=== PATIENT | female | born 1975 | race Caucasian/White ===

== ENCOUNTER 2016-08-13 09:01 | Emergency (ER) | payer MEDICAID ==
[~2016-08-13] VITALS: Ht 162.6 cm; Wt 79.0 kg
[2016-08-13 09:03] VITALS: BP 123/65
--- NOTE | 2016-08-13 09:45 | NUR ---
PT AMBULATED TO BED 3 AT THIS TIME.
--- NOTE | 2016-08-13 09:50 | NUR ---
40F BIB SELF C/O EPIGASTRIC PAIN, PRESSURE, RADIATES TO BL UPPER ABDOMINAL SIDES, 10/10 X 2 DAYS; PT STATES VOMITTED X 4 EPISODES TODAY, BUT DENIES DIARRHEA AT THIS TIME; ABDOMEN SOFT, NON-TENDER, ACTIVE BOWEL SOUNDS X 4 QUADRANTS; A&OX4, PERRL, BL LUNG SOUNDS CLEAR, RR EVEN/UNLABORED, SKIN IS WARM/DRY/INTACT AT THIS TIME; STEADY GAIT; PT RESTING IN BED W/ HOB ELEVATED AND IN LOWEST POSITION; POSITIONED FOR COMFORT; ER MD MADE AWARE OF STATUS. WILL CONTINUE TO MONITOR.
--- NOTE | 2016-08-13 09:55 | NUR ---
ER MD DR. CHOE EVALUATING PT AT BEDSIDE.
[2016-08-13] MEDS ORDERED: NACL 0.9% 500 ML IV ONE (09:56)
[2016-08-13] MEDS ORDERED: KETOROLAC 30 MG/ML VIAL IVP ONE (10:00)
[2016-08-13] MEDS ORDERED: ONDANSETRON 4 MG/2 ML VIAL IVP ONE (10:00)
--- NOTE | 2016-08-13 10:27 | NUR ---
US AT BEDSIDE AT THIS TIME.
[2016-08-13 10:28] LABS: BASOPHILS # (AUTO) 0.2 K/uL (0.00-0.22); EOSINOPHILS # (AUTO) 0.2 K/uL (0-0.4); MONOCYTES # (AUTO) 0.5 K/uL (0.8-1.0); NEUTROPHILS # (AUTO) 4.4 K/uL (1.8-7.7)
[2016-08-13 10:35] LABS: BASOPHILS % (AUTO) 3.4 % (0.0-2.0); EOSINOPHILS % (AUTO) 2.2 % (0.0-4.0); HEMATOCRIT 41.7 % (36-48); HEMOGLOBIN 13.9 g/dL (12.0-16.0); LYMPHOCYTES # (AUTO) 1.7 K/uL (2.5-16.5); LYMPHOCYTES % (AUTO) 24.6 % (20.5-51.1); MEAN CORPUSCULAR HEMOGLOBIN 30 pg (27-31); MEAN CORPUSCULAR HGB CONC 33 g/dL (33-37); MEAN CORPUSCULAR VOLUME 88 fL (80-94); MONOCYTES % (AUTO) 7.1 % (1.7-9.3); NEUTROPHILS % (AUTO) 62.7 % (42.2-75.2); PLATELET COUNT (AUTO) 183 K/uL (140-450); RED BLOOD CELL COUNT(AUTO) 4.71 MIL/uL (4.20-5.40); RED CELL DISTRIBUTION WIDTH 12.5 % (11.6-13.7)
[2016-08-13 10:37] LABS: ANION GAP 11.4 (8-16); CALCIUM 8.4 mg/dL (8.5-10.1); CARBON DIOXIDE 27.5 mmol/L (21-32); CREATININE 0.7 mg/dL (0.6-1.3); POTASSIUM 3.9 mmol/L (3.5-5.1)
[2016-08-13 10:42] LABS: ALBUMIN 3.9 g/dL (3.4-5.0); TOTAL BILIRUBIN 0.2 mg/dL (0.0-1.0); TOTAL PROTEIN, SERUM 7.7 g/dL (6.4-8.2)
--- NOTE | 2016-08-13 12:04 | NUR ---
Patient appears to be resting comfortably in bed. Vital Signs within normal limits. Respirations even and unlabored. WILL CONTINUE TO MONITOR.
--- NOTE | 2016-08-13 12:19 | NUR ---
IV removed, catheter intact and site benign. Applied folded 4x4 gauze and tape to stop bleeding. PT TOLERATED PROCEDURE WELL.
[2016-08-13 12:21] VITALS: BP 112/75
--- NOTE | 2016-08-13 12:21 | NUR ---
Patient discharged with v/s stable. Written and verbal after care instructions given and explained. Patient alert, oriented and verbalized understanding of instructions. Ambulatory with steady gait. All questions addressed prior to discharge. ID band removed. Patient advised to follow up with PMD. Rx of MOTRIN 800MG, TYLENOL W/ CODEINE NO. 3 & ZOFRAN ODT 4MG given. Patient educated on indication of medication including possible reaction and side effects. Opportunity to ask questions provided and answered.
[2016-08-14] MEDS ORDERED: ONDA4TAB PO (21:14)
[2016-08-14] MEDS ORDERED: IBUP-2213 PO (21:14)
== END 2016-08-13 12:21 | disposition home or self-care (01) ==
LOC: MED 09:01
PROC: BF42ZZZ Ultrasonography of Gallbladder (ICD-10-PCS; principal; 2016-08-13)
PROC: 3E033GC Introduction of Other Therapeutic Substance into Peripheral Vein, Percutaneous Approach (ICD-10-PCS; 2016-08-13)
DX: K80.20 Calculus of gallbladder without cholecystitis without obstruction (principal); R03.0 Elevated blood-pressure reading, without diagnosis of hypertension
CPT/HCPCS: 36415; 76705; 80053; 81025; 82150; 83690; 85025; 96361; 96374; 96375; 99285; J1885; J2405; J7030; Q0092

== ENCOUNTER 2016-08-14 15:20 | Inpatient (IN) | payer MEDICAID ==
[~2016-08-14] VITALS: Ht 162.6 cm; Wt 78.9 kg
[2016-08-14 16:24] VITALS: BP 123/88
--- NOTE | 2016-08-14 19:57 | NUR ---
Patient ambulated to bed 04.
--- NOTE | 2016-08-14 19:58 | NUR ---
PATIENT PRESENTS TO ED WITH C/O EPIGASTRIC PAIN NON RADIATING WITH N/V X 3 DAYS. PT WAS SEEN IN ER LAST NIGHT WITH RX OF NORCO, TAKEN WITH NO RELIEF OF PAIN . PT STATES NO MEDICAL HISTORY. DENIES DIARRHEA; SKIN IS PINK/WARM/DRY; AAOX4 WITH EVEN AND STEADY GAIT; LUNGS CLEAR BL; HR EVEN AND REGULAR; PT DENIES ANY FEVER, CP, SOB, OR COUGH AT THIS TIME; PATIENT STATES PAIN OF 10/10 AT THIS TIME; VSS; PATIENT POSITIONED FOR COMFORT; HOB ELEVATED; BEDRAILS UP X2; BED DOWN. ER MD MADE AWARE OF PT STATUS.
[2016-08-14] MEDS ORDERED: ONDANSETRON 4 MG/2 ML VIAL IVP ONE (20:45)
[2016-08-14] MEDS ORDERED: MORPHINE SULFATE 4 MG/ML SYR IVP ONE (20:45)
[2016-08-14] MEDS ORDERED: NACL 0.9% 1,000 ML IV ONE (20:45)
--- NOTE | 2016-08-14 20:46 | NUR ---
Dr. Garcia evaluating patient at bedside.
--- NOTE | 2016-08-14 21:08 | NUR ---
Patient will be admitted to care of MD XAVIER GONZALEZ. Admited to MED-SURG. Will go to room 112B. Belongings list completed.
[2016-08-14] MEDS ORDERED: ZOFRAN4 M1 PO (21:14)
[2016-08-14] MEDS ORDERED: MOTRIN600 MG PO (21:14)
[2016-08-14] MEDS ORDERED: ONDANSETRON 4 MG/2 ML VIAL IVP PRN (21:20)
--- NOTE | 2016-08-14 21:25 | NUR ---
REPORT CALLED TO KWESI VAUGHAN.
[2016-08-14 21:35] VITALS: BP 115/73
--- NOTE | 2016-08-14 21:35 | NUR ---
ADMITTED A PT FROM ER, TRANSPORTED VIA WHEELCHAIR. PT IS AAOX4, HAS NO COMPLAIN OF PAIN. LIBERIAN SPEAKER. ON ROOM AIR, NO S/S OF RESPIRATORY DISTRESS/DISCOMFORT NOTED. MRSA SWABBING DONE. ID BAND UPDATED. ORIENTATION TO ROOM DONE. V/S CHECKED. PLAN OF CARE DISCUSSED, VERBALIZED UNDERSTANDING. SAFETY MEASURES INITIATED. WILL CONTINUE TO MONITOR.
--- NOTE | 2016-08-14 21:37 | NUR ---
Pt transferred to Med/Surg ROOM 112B via WHEELCHAIR BY EMT IN STABLE CONDITION. TRANSFER OF CARE AT THIS TIME TO CLEMENT Thompson RN.
[2016-08-14] MEDS: NACL 0.9% 1,000 ML IV SCH (23:04)
[2016-08-15] VITALS: BP 109/73
--- NOTE | 2016-08-15 00:35 | NUR ---
V/S CHECKED AND STABLE. HAS NO COMPLAIN OF PAIN. NO S/S OF RESPIRATORY DISTRESS/ DISCOMFORT NOTED.
--- NOTE | 2016-08-15 02:00 | NUR ---
PT SLEEPING. NO S/S OF RESPIRATORY DISTRESS/DISCOMFORT NOTED. SAFETY MEASURES CHECKED, CALL LIGHT WITHIN REACH.
[2016-08-15] MEDS: HYDROcodone/APAP 5/325 MG 1 TAB TAB PO PRN (03:52)
--- NOTE | 2016-08-15 04:00 | NUR ---
PT COMPLAINED OF PAIN 10/10 TO HER ABDOMINAL AREA, ADMINISTERED PAIN MED PER MD ORDERED.
[2016-08-15] MEDS: NACL 0.9% 1,000 ML IV SCH ×3 (06:42→22:19)
--- NOTE | 2016-08-15 06:44 | NUR ---
PT AMBULATED TO RESTROOM WITH STEADY GAIT, NO DISTRESS NOTED.
--- NOTE | 2016-08-15 07:21 | NUR ---
ENDORSED REPORT TO DAY SHIFT NURSE FOR CONTINUITY OF CARE. PT REMAIN IN STABLE CONDITION.
--- NOTE | 2016-08-15 07:22 | NUR ---
RECEIVED PT AWAKE AND LYING ON BED, AOX4 NO S/S OF RESPIRATORY DISTRESS OR DISCOMFORT. WITH IV ACCESS AT LEFT AC 20G INFUSING FLUIDS WELL. SKIN IS INTACT. DISCUSSED PLAN OF CARE, PT VERBALIZED UNDERSTANDING. NO COMPLAINTS OF PAIN OR NAUSEA AT THIS TIME. CALL LIGHT WITHIN REACH, WILL CONTINUE TO MONITOR.
[2016-08-15 08:00] VITALS: BP 114/72
--- NOTE | 2016-08-15 08:22 | NUR ---
PATIENT HAS BEEN SCREENED AND CATEGORIZED MODERATE NUTRITION RISK. PATIENT WILL BE SEEN WITHIN 3-5 DAYS OF ADMISSION. 08/17/16-08/19/[address]
--- NOTE | 2016-08-15 09:32 | NUR ---
PT AWAKE LYING ON BED WITH RELATIVE AT BEDSIDE. COMPLAINED OF ABDOMINAL PAIN, WILL ADMINISTER MORPHINE.
[2016-08-15] MEDS: MORPHINE SULFATE 2 MG/ML SYR IVP PRN (09:43)
--- NOTE | 2016-08-15 09:59 | NUR ---
SPOKE TO DR. SIM ON THE PHONE, WILL CARRY OUT NEW ORDERS
--- NOTE | 2016-08-15 11:30 | NUR ---
PT ASLEEP AT THIS TIME, INFORMED ABOUT HIDA SCAN.
--- NOTE | 2016-08-15 13:48 | NUR ---
PT LEFT UNIT FOR HIDA SCAN ACCOMPANIED BY ARMAND MENDOZA NUCLEAR MED ON A WHEELCHAIR
--- NOTE | 2016-08-15 15:10 | NUR ---
PT BACK TO UNIT FROM HIDA SCAN
[2016-08-15 16:00] VITALS: BP 118/77
--- NOTE | 2016-08-15 17:36 | NUR ---
PT SITTING ON BED WITH RELATIVES AT BEDSIDE. ALL NEEDS MET AT THIS TIME. WILL CONTINUE TO MONITOR.
--- NOTE | 2016-08-15 19:31 | NUR ---
ENDORSED PT TO ADINARN IN STABLE CONDITION FOR CONTINUITY OF CARE
--- NOTE | 2016-08-15 19:35 | NUR ---
RECEIVED PT IN STABLE CONDITION FROM MN NURSE. AWAKE,ALERT AND ORIENTED X4. MAORI SPEAKING. MED SURG PT. WITH NO C/O ANY PAIN AT THIS TIME. FAMILY AT BEDSIDE. HAS IVF INFUSING WELL ON THE LT AC#20. CLEAR AND PATENT. AMBULATORY. AWAITING HFOR HIDA SCAN RESULT. WILL CALL DR. SIM FOR RESULT. PLAN OFC ARE DISCUSSED AND VERBALIZED UNDERSTANDING. CALL LIGHT PLACED WITHIN EASY REACH. WILL CONTINUE TO MONITOR.
--- NOTE | 2016-08-15 19:53 | NUR ---
PAGED DR. SIM FOR RESULT OF HIDA SCAN. CALLED BACK .MADE AWARE OF THE RESULT. WITH ORDER TO START REGULAR DIET AND CAN BE DISCHARGE ANYTIME AND FOLLOW UP IN ONE WEEK . TO HAVE MD AWARE.
--- NOTE | 2016-08-15 20:09 | NUR ---
PAGED DR. GONZALEZ. DR. OVIEDO MEDICARE COORDINATOR. CALLED BACK. MADE AWARE OF [facility] ORDER . SHE SAID PT CAN STILL STAY FOR TONIGHT.
--- NOTE | 2016-08-15 21:00 | NUR ---
PT TOLERATED SOLID FOOD. NO N/V NOTED. WILL CONTINUE TO MONITOR.
--- NOTE | 2016-08-15 22:30 | NUR ---
SLEEPING AT THIS TIME. NO S/S OF ANY DISCOMFORT NOR PAIN NOTED.
[2016-08-15 23:50] VITALS: BP 100/63
[2016-08-16] MEDS: HYDROcodone/APAP 5/325 MG 1 TAB TAB PO PRN (00:03)
[2016-08-16] MEDS: NACL 0.9% 1,000 ML IV SCH ×4 (00:39→23:19)
--- NOTE | 2016-08-16 01:30 | NUR ---
MADE ROUNDS. SLEEPING WELL. NO C/O PAIN NOR DISCOMFORT NOTED.
--- NOTE | 2016-08-16 03:45 | NUR ---
MADE ROUNDS. SLEEPING WELL. NO S/S OF ANY PAIN NOTED.
--- NOTE | 2016-08-16 06:20 | NUR ---
SLEPT WELL DURING THE NIGHT. NO C/O ANY PAIN AT THIS TIME.
--- NOTE | 2016-08-16 07:20 | NUR ---
RECEIVED REPORT FROM NIGHT NURSE. PT IS RESTING IN BED. PT IS A/O X 2. PT IS ON ROOM AIR. PT HAS A 20G IV ON THE RIGHT AC THAT IS PATENT AND INTACT. PATIENT DENIES PAIN. NOTED ABSCESS IN THE LEFT UPPER INNER THIGH. PT'S BED IS LOWERED WITH CALL LIGHT WITHIN REACH. WILL CONTINUE TO MONITOR. Addendum: 08/16/16 at 0738 by Alondra Adler RN WRONG PATIENT. RECEIVED REPORT FROM NIGHT NURSE. PT IS RESTING IN BED. PT IS A/OX4. PT IS ON ROOM AIR. PT HAS LEFT AC 20G THAT IS PATENT AND INTACT. PATIENT HAS NO COMPLAINT OF PAIN. PT SKIN IS INTACT. PT'S BED IS LOWERED WITH CALL LIGHT WITHIN REACH. WILL CONTINUE TO MONITOR.
--- NOTE | 2016-08-16 07:21 | NUR ---
ENDORSED PT IN STABLE CONDITION TO AM NURSE.
[2016-08-16 08:00] VITALS: BP 119/72
--- NOTE | 2016-08-16 09:00 | NUR ---
PT EATING BREAKFAST. PT TOLERATING WELL. NO COMPLAINTS OF PAIN. WILL CONTINUE TO MONITOR.
--- NOTE | 2016-08-16 11:00 | NUR ---
PT VISITED. PT IN BED AND SHOWS NO S/S OF DISTRESS.
--- NOTE | 2016-08-16 15:00 | NUR ---
PT SPOKE WITH DR GREEN. PT STATED SHE FELT NAUSEATED AFTER EATING A REGULAR DIET. NURSE WAS NOTIFIED AND WILL MEDICATE. PT STATES SHE FEELS SWEATY AND HAS PAIN RADIATING FROM THE UPPER RIGHT QUADRANT TO MIDEPIGASTRIC. DR TERRAZAS LET PT KNOW SHE WILL BE STAYING ANOTHER NIGHT
--- NOTE | 2016-08-16 15:05 | NUR ---
PT MEDICATED FOR NAUSEA AND VOMITING. WILL CONTINUE TO MONITOR.
[2016-08-16 16:00] VITALS: BP 122/85
[2016-08-16] MEDS ORDERED: ALUMINUM HYD/MAG/SIMETHICONE 30 ML UDC PO PRN (16:45)
[2016-08-16] MEDS ORDERED: ALUMINUM HYD/MAG/SIMETHICONE 30 ML UDC PO SCH (16:47)
[2016-08-16] MEDS: MORPHINE SULFATE 2 MG/ML SYR IVP PRN (17:45)
--- NOTE | 2016-08-16 19:10 | NUR ---
PT REPORT GIVEN AT BEDSIDE TO NIGHT NURSE. PT ENDORSED IN STABLE CONDITION.
--- NOTE | 2016-08-16 19:30 | NUR ---
RECEIVED PT IN STABLE CONDITION FROM AM NURSE. AWAKE,ALERT AND ORIENTED X4. GEORGIAN SPEAKING. MED SURG PT. WITH NO DISTRESS NOTED. PT SAID STILL WITH SOME ABDOMINAL DISCOMFORT BUT DON'T NEED ANY PAIN MED AT THIS TIME. HAS IVF INFUSING ON THE LT AC #20. AMBULATORY. PLAN OF CARE DISCUSSED AND VERBALIZED UNDERSTANDING. CALL LIGHT PLACED WITHIN EASY REACH. WILL CONTINUE TO MONITOR.
--- NOTE | 2016-08-16 20:15 | NUR ---
PT C/O PAIN ON IV SITE LT AC. DISCONTINUED. STARTED A NEW IV ACCESS ON THE LT HAND #20. WITH GOOD BLOOD RETURN. IVF INFUSING WELL.
--- NOTE | 2016-08-16 22:00 | NUR ---
SLEEPING WELL AT THIS TIME.O S/S OF ANY DISCOMFORT NOR PAIN NOTED.
[2016-08-16 23:58] VITALS: BP 108/65
--- NOTE | 2016-08-17 00:02 | NUR ---
VITAL SIGNS STABLE. NO C/O ANY PAIN AT THIS TIME. NO N/V NOTED.
--- NOTE | 2016-08-17 02:45 | NUR ---
SLEEPING WELL AT THIS TIME. NO S/S OF ANY DISCOMFORT NOTED.
--- NOTE | 2016-08-17 05:00 | NUR ---
SLEPT WELL. NO NAUSEA AND VOMITING NOTED.
[2016-08-17] MEDS: NACL 0.9% 1,000 ML IV SCH ×3 (05:01→15:59)
--- NOTE | 2016-08-17 07:10 | NUR ---
RECEIVED REPORT FROM NIGHT NURSE. PT IS RESTING IN BED AND SHOWS NO S/S OF DISTRESS. PT DENIES PAIN AND NO NAUSEA. PT IS A/OX4. PT IS ON ROOM AIR. PT HAS IV ON THE LEFT HAND 20G THAT IS PATENT AND INTACT. PT SKIN IS INTACT. PT'S BED IS LOWERED WITH CALL LIGHT WITHIN REACH. WILL CONTINUE TO MONITOR.
--- NOTE | 2016-08-17 07:25 | NUR ---
ENDORSED PT IN STABLE CONDITION TO AM NURSE FOR CONTINUITY OF CARE.
[2016-08-17 08:00] VITALS: BP 111/74
[2016-08-17] MEDS ORDERED: COLACE100 MG PO (11:05)
[2016-08-17] MEDS ORDERED: NORCO 10-325 T1 EACH PO (11:05)
[2016-08-17] MEDS ORDERED: ZOFRAN ODT4 MG SL (11:05)
--- NOTE | 2016-08-17 12:55 | NUR ---
PT SEEN BY DR. GREEN. DR ORDERED PT FOR DISCHARGE LATER TODAY.
--- NOTE | 2016-08-17 14:00 | NUR ---
PT RESTING IN BED. PT SHOWS NO S/S OF DISTRESS. WILL CONTINUE TO MONITOR.
[2016-08-17 16:00] VITALS: BP 118/78
--- NOTE | 2016-08-17 16:40 | NUR ---
PT HAS BEEN DISCHARGED. ALL PAPERWORK SIGNED. ALL QUESTIONS ANSWERED. ALL BELONGINGS, DISCHARGE INSTRUCTIONS, AND PRESCRIPTIONS GIVEN AND IN PT'S POSSESSION. IV DISCONTINUED WITH CANNULA INTACT. WRISTBANDS REMOVED. OFFERED PATIENT WHEELCHAIR, PATIENT REFUSED. PATIENT AMBULATED OUT OF UNIT WITH STEADY GAIT WITH FAMILY PRESENT AT SIDE. PATIENT IN STABLE CONDITION.
[2016-11-11] MEDS ORDERED: NORCO 5/325 MG1 TAB PO (12:08)
== END 2016-08-17 16:50 | disposition home or self-care (01) ==
LOC: MED 15:20 → MMU 21:08 → MTU 21:34
PROVIDERS: ADMIT Family Medicine; ATTEND Family Medicine
DX: K80.70 Calculus of gallbladder and bile duct without cholecystitis without obstruction (principal); E44.1 Mild protein-calorie malnutrition; Z53.29 Procedure and treatment not carried out because of patient's decision for other reasons; E83.51 Hypocalcemia; Z68.29 Body mass index [BMI] 29.0-29.9, adult; Z79.899 Other long term (current) drug therapy; Z83.3 Family history of diabetes mellitus; Z56.0 Unemployment, unspecified; Z71.3 Dietary counseling and surveillance

== ENCOUNTER 2017-08-11 16:55 | Emergency (ER) | payer MEDICAID ==
[~2017-08-11] VITALS: Ht 165.1 cm; Wt 75.1 kg
[~2017-08-11 16:55] MED LIST: ACET-8386 PO
[2017-08-11 17:07] VITALS: BP 125/84
--- NOTE | 2017-08-11 17:14 | NUR ---
PT AMBULATED TO BED 1
--- NOTE | 2017-08-11 17:18 | NUR ---
PATIENT PRESENTS TO ED WITH C/O NVD, COUGH, FEVER, GEN BODY ACHE, SOB X 2 DAYS; TOOK MOTRIN AROUND 1500 . AAOX4 WITH EVEN AND STEADY GAIT; LUNGS CLEAR BL; HR EVEN AND REGULAR; SKIN IS PINK/WARM/DRY; PATIENT STATES GENERALIZED PAIN OF 10/10 AT THIS TIME; VSS; PATIENT POSITIONED FOR COMFORT; HOB ELEVATED; BEDRAILS UP X2; BED DOWN. ER MD MADE AWARE OF PT STATUS.
[2017-08-11] MEDS ORDERED: ACETAMIN/CODEINE 120/12MG-5ML 5 ML UDC PO ONE (18:15)
[2017-08-11 18:53] VITALS: BP 110/78
--- NOTE | 2017-08-11 18:53 | NUR ---
Patient discharged with v/s stable. Written and verbal after care instructions given and explained. Patient alert, oriented and verbalized understanding of instructions. Ambulatory with to car. All questions addressed prior to discharge. ID band removed. Patient advised to follow up with PMD. Rx of AZITHROMYCIN AND GUAIATUSSIN given. Patient educated on indication of medication including possible reaction and side effects. Opportunity to ask questions provided and answered.
== END 2017-08-11 18:53 | disposition home or self-care (01) ==
LOC: MED 16:55
DX: J20.9 Acute bronchitis, unspecified (principal); Z90.49 Acquired absence of other specified parts of digestive tract; Z79.899 Other long term (current) drug therapy
CPT/HCPCS: 71045; 81025; 99283; Q0092

== ENCOUNTER 2018-06-14 12:03 | Inpatient (IN) | payer MEDICAID ==
[~2018-06-14] VITALS: Ht 162.6 cm; Wt 75.7 kg
--- NOTE | 2018-06-14 12:08 | NUR ---
PT AMBULATES TO BED 3
[2018-06-14 12:13] VITALS: BP 130/84
--- NOTE | 2018-06-14 12:16 | NUR ---
urine cup handed to pt
[2018-06-14] MEDS ORDERED: NACL 0.9% 2,000 ML IV SCH (12:19)
[2018-06-14] MEDS ORDERED: NACL 0.9% 1,000 ML IV ONE (12:19)
[2018-06-14] MEDS ORDERED: DICYCLOMINE HCL LIQUID 10 MG/5 ML UDC PO ONE (12:20)
[2018-06-14] MEDS ORDERED: MORPHINE SULFATE 2 MG/ML SYR IVP ONE (12:20)
[2018-06-14] MEDS ORDERED: KETOROLAC 30 MG/ML VIAL IVP ONE (12:20)
[2018-06-14] MEDS ORDERED: PIPERACILLIN/TAZOBACTAM 3.375 GM in DEXT 5% MINI-BAG PLUS 50 ML IV ONE (12:20)
--- NOTE | 2018-06-14 12:20 | NUR ---
42 Y/O F W/C/O INTERMITTENT GENERALIZED ABD PAIN/ ASCITIES X 1 WEEK. PT STATES SHE HAS A "BLOATED, FULL SENSATION IN ABD." PT DENIES N/V/D; SKIN IS PINK/WARM/DRY; AAOX4, PERRL, WITH EVEN AND STEADY GAIT; LUNGS CLEAR BL, BREATHING UNLABORED; HR EVEN AND REGULAR, BL PERIPHERAL PULSES PRESENT; PT DENIES ANY FEVER, CP, SOB, OR COUGH AT THIS TIME; PT STATES 9/10 PAIN AT THIS TIME; VSS; PATIENT POSITIONED FOR COMFORT; HOB ELEVATED; BEDRAILS UP X2; BED DOWN. --seen in our ER May 10, 2018 dx Diverticulitis Hx-Diverticulitis rx--Zantac/ Omeprazol
[2018-06-14 12:44] LABS: BASOPHILS % (AUTO) 0.5 % (0.0-2.0); EOSINOPHILS # (AUTO) 0.1 K/uL (0-0.4); EOSINOPHILS % (AUTO) 1.3 % (0.0-4.0); HEMATOCRIT 43.7 % (36-48); HEMOGLOBIN 14.1 g/dL (12.0-16.0); LYMPHOCYTES # (AUTO) 1.5 K/uL (2.5-16.5); LYMPHOCYTES % (AUTO) 21.4 % (20.5-51.1); MEAN CORPUSCULAR HEMOGLOBIN 29 pg (27-31); MEAN CORPUSCULAR HGB CONC 32 g/dL (33-37); MEAN CORPUSCULAR VOLUME 89.2 fL (80-94); MONOCYTES # (AUTO) 0.5 K/uL (0.8-1.0); MONOCYTES % (AUTO) 6.8 % (1.7-9.3); NEUTROPHILS # (AUTO) 4.9 K/uL (1.8-7.7); PLATELET COUNT (AUTO) 188 K/uL (140-450); RED CELL DISTRIBUTION WIDTH 14.1 % (11.6-13.7)
[2018-06-14] MEDS ORDERED: PIPERACILLIN/TAZOBACTAM 3.375 GM VIAL IV ONE (12:44)
--- NOTE | 2018-06-14 12:44 | NUR ---
PT TAKEN TO X-RAY AT THIS TIME.
[2018-06-14 12:52] LABS: ANION GAP 12.8 (8-16); CARBON DIOXIDE 24.6 mmol/L (21-32); CREATININE 0.8 mg/dL (0.6-1.3); POTASSIUM 3.4 mmol/L (3.5-5.1)
[2018-06-14 12:58] LABS: ALBUMIN 3.6 g/dL (3.4-5.0); TOTAL BILIRUBIN 0.4 mg/dL (0.0-1.0)
[2018-06-14 13:03] LABS: PROTHROMBIN TIME 9.3 secs (10.8-13.4)
--- NOTE | 2018-06-14 13:14 | NUR ---
PT STILL NOT BACK AT THIS TIME.
--- NOTE | 2018-06-14 13:15 | NUR ---
PT STAYING FOR CT PER TECH.
--- NOTE | 2018-06-14 13:33 | NUR ---
PT BACK FROM CT AT THIS TIME.
[2018-06-14] MEDS ORDERED: NACL 0.9% 1,000 ML IV SCH (13:49)
[2018-06-14] MEDS ORDERED: ACETAMINOPHEN 325 MG TAB PO PRN (13:50)
[2018-06-14] MEDS ORDERED: ZOLPIDEM 5 MG TAB PO PRN (13:50)
[2018-06-14] MEDS ORDERED: ONDANSETRON 4 MG/2 ML VIAL IM/IVP PRN (13:50)
[2018-06-14] MEDS ORDERED: DOCUSATE SODIUM 100 MG GELCAP PO PRN (13:50)
[2018-06-14] MEDS ORDERED: HYDROcodone/APAP 5/325 MG 1 TAB TAB PO PRN (13:50)
[2018-06-14 14:02] LABS: APPEARANCE,URINE CLEAR (CLEAR); BILIRUBIN,URINE 1+ (NEGATIVE); BLOOD, URINE NEGATIVE (NEGATIVE); COLOR,URINE YELLOW (YELLOW); LEUKOCYTE ESTERASE ,URINE NEGATIVE (NEGATIVE); NITRITE, URINE NEGATIVE (NEGATIVE); UGLUCOSE NEGATIVE (NEGATIVE)
[2018-06-14 14:05] VITALS: BP 114/78
[2018-06-14 14:05] LABS: CALCIUM OXALATE CRYSTALS,UR 0-10 /HPF (None Seen); RBC,URINE 0-5 (RARE) /HPF (0-5); WBC,URINE 0-5 (RARE) /HPF (0-5)
--- NOTE | 2018-06-14 14:05 | NUR ---
RECEIVED BEDSIDE REPORT FROM ER TRANSFER RN. PATIENT IS AOX4. C/O ABDOMINAL PAIN 12/20. MEDICATED WITH MORPHINE. VITAL SIGNS ARE STABLE. IV ON L AC 20G, PATENT AND INTACT, INFUSING PER MD ORDER. IV SITE CLEAN AND DRY. SKIN CLEAN, DRY AND WARM. RESPIRATION IS EVEN, UNLABORED IN RA. ABLE TO AMBULATE WITH STEADY GAIT. TELE MONITOR ATTACHED. PATIENT IS NPO PER MD ORDER. ORIENTED PATIENT TO THE ROOM, USING CALL LIGHT, TV, BED, AND BATHROOM. FAMILY ARE AT BEDSIDE AT THIS TIME. REVIEWED PLAN OF CARE WITH PATIENT, PATIENT VERBALIZED UNDERSTANDING. NPO SIGN POSTED ON DOOR. BED IN LOW POSITION, CALL LIGHT WITHIN REACH. WILL CONTINUE TO MONITOR.
--- NOTE | 2018-06-14 14:05 | NUR ---
PT TAKEN TO TELE FLOOR BY RN IVANNA AND EMT SARAH
[2018-06-14 14:09] LABS: BARBITURATE, URINE NEG. ng/ml (NEG <=200); BENZODIAZEPINE, URINE NEG. ng/mL (NEG <=200); CANNABINOID, URINE NEG. ng/mL (NEG <=50); COCAINE, URINE NEG. ng/mL (NEG <=300); OPIATE, URINE NEG. ng/mL (NEG <=2000); PHENCYCLIDINE SCREEN,URINE NEG. ng/mL (NEG <=25)
--- NOTE | 2018-06-14 14:10 | NUR ---
Patient will be admitted to care of DR. VILLAFANA. Admited to TELE. Will go to room 106B. Belongings list completed. Report to CORWIN OROSCO.
--- NOTE | 2018-06-14 14:21 | NUR ---
Patient will be admitted to care of DR. VILLAFANA. Admited to TELE. Will go to room 106B. Belongings list completed. Report to CORWIN OROSCO.
--- NOTE | 2018-06-14 14:21 | NUR ---
Note mansoor in ED - 06/14/18 at 1422 by COTY Patient will be admitted to care of DR. VILLAFANA. Admited to TELE. Will go to room 106B. Belongings list completed. Report to CORWIN OROSCO.
[2018-06-14 14:27] LABS: CHOL/HDL RATIO 4.5 (1-4.5); MAGNESIUM 2.5 mg/dL (1.8-2.4); PHOSPHORUS 3.6 mg/dL (2.5-4.9); THYROID STIMULATING HORMONE 1.5 uIU/mL (0.34-3.74)
[2018-06-14] MEDS ORDERED: MORPHINE SULFATE 2 MG/ML SYR IVP SCH (14:30)
[2018-06-14 16:00] VITALS: BP 138/88
--- NOTE | 2018-06-14 17:15 | NUR ---
DR MADISON Lowe IS AT BEDSIDE TALKING TO PATIENT AND PATIENT'S FAMILY.
--- NOTE | 2018-06-14 17:38 | NUR ---
[facility] MEDICAL TECHNOLOGIST BLOOD BANK NOTIFIED OF TRANSFER OF THIS PATIENT, ACCEPTING DR Mynor ROBERTS, FACE SHEET AND H&P, AND DR Mynor ROBERTS'S NOTES FAXED TO [phone]
[2018-06-14] MEDS ORDERED: PIPER/TAZO 3.375GM/D5W PREMIX 50 ML IV SCH (18:00)
[2018-06-14] MEDS ORDERED: MORP2SOL18 IVP (18:09)
[2018-06-14] MEDS ORDERED: ONDA2SOL45 IM/IVP (18:09)
[2018-06-14] MEDS ORDERED: ACET-1182 PO (18:09)
[2018-06-14] MEDS ORDERED: PIPE1PDS20 IV (18:09)
--- NOTE | 2018-06-14 18:22 | NUR ---
ADMINISTERED MED PER MD ORDER. PATIENT TOLERATED WELL. DENIES OF PAIN. FAMILY AND VISITORS ARE AT BEDSIDE. WILL CONTINUE TO MONITOR.
--- NOTE | 2018-06-14 19:07 | NUR ---
I GOT A CALL FROM [facility] SPOKE WITH ZELALEM PATIENT CAN GO TO ROOM 345B ACCEPTING DR WILL BE DR ARMANDO MICHAEL WILL ARRANGE TRANSPORT WITH [facility].
--- NOTE | 2018-06-14 19:20 | NUR ---
ENDORSED PATIENT TO MEDIA STRATEGIST NURSE FOR CONTINUITY OF CARE. PATIENT IS IN STABLE CONDITION. INFORMED PATIENT AND FAMILY ON REGARDS OF TRANSFER TO [facility]. PATIENT AND FAMILY VERBALIZED UNDERSTANDING.
--- NOTE | 2018-06-14 19:22 | NUR ---
REPORT RECEIVED FROM AM NURSE AT BEDSIDE. PT IN STABLE CONDITION. AAOX4. INTRODUCED SELF TO PT. BOARD UPDATED. NO COMPLAINTS OF PAIN. NO SOB. AFEBRILE. IV SITE L AC 20G RUNNING NS@60ML/HR PATENT AND INTACT. SKIN WARM, DRY, AND INTACT WITH NO OPEN WOUNDS. BED LOCKED IN LOW POSITION. CALL JIMÉNEZ WITHIN REACH. SAFETY PRECAUTIONS IN PLACE. ALL NEEDS MET AT THIS TIME.
[2018-06-14 20:00] VITALS: BP 117/79
[2018-06-14] MEDS ORDERED: MORPHINE SULFATE 2 MG/ML SYR IVP PRN (20:30)
[2018-06-14 20:55] VITALS: BP 117/79
--- NOTE | 2018-06-14 21:00 | NUR ---
DISCHARGE PAPERWORK COMPLETE. PT SIGNED ALL PAPERWORK.
--- NOTE | 2018-06-14 21:15 | NUR ---
[facility] CALLED. 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
--- NOTE | 2018-06-14 21:45 | NUR ---
REPORT GIVEN TO LION [phone]. PT TO BE ACCEPTED BY DR. Willie ROBERTS. SURGICAL CONSULT WITH DR. ARAYA. ACCEPTING WILL BE [place] OROSCO. PT NEEDS TO GO TO ER TO [facility] GUIDE DELORIS TELLO.
[2018-06-15] MEDS ORDERED: POTASSIUM CHLORIDE 10 MEQ TABER PO SCH (09:00)
== END 2018-06-14 22:50 | disposition short-term general hospital (02) | DRG 244 ==
LOC: MED 12:03 → MTU 13:57
PROVIDERS: ADMIT General Practice; ATTEND General Practice
DX: K57.92 Diverticulitis of intestine, part unspecified, without perforation or abscess without bleeding (principal); R18.8 Other ascites; N73.5 Female pelvic peritonitis, unspecified; D27.0 Benign neoplasm of right ovary; E66.9 Obesity, unspecified; E78.5 Hyperlipidemia, unspecified; E87.6 Hypokalemia; Z79.899 Other long term (current) drug therapy; Z90.49 Acquired absence of other specified parts of digestive tract; Z98.891 History of uterine scar from previous surgery; Z83.3 Family history of diabetes mellitus; Z68.28 Body mass index [BMI] 28.0-28.9, adult
CPT/HCPCS: 36415; 71045; 76856; 80053; 80305; 81001; 82150; 83036; 83605; 83690; 83735; 84100; 84134; 84443; 84703; 85025; 85610; 85730; 87040; 87081; 87086; 93005; 96365; 96375; 99285; J1885; J2270; J2543; Q0092

== ENCOUNTER 2019-03-22 09:10 | Emergency (ER) | payer MEDICAID, OTHER ==
[~2019-03-22] VITALS: Ht 162.6 cm; Wt 59.0 kg
[~2019-03-22 09:10] MED LIST changes: +ACET-1182 PO; +MORP2SOL18 IVP; +ONDA2SOL45 IM/IVP; +PIPE1PDS20 IV
[2019-03-22 09:21] VITALS: BP 124/82
--- NOTE | 2019-03-22 09:30 | NUR ---
PT AMBULATED TO BED 04.
--- NOTE | 2019-03-22 09:35 | NUR ---
PT ARRVIED TO ED C/O EPIGASTRIC PAIN, N,V,D X 3 DAYS S/P CHEMOTHERAPY. RATES PAIN 10/10. ACTIVE BS IN ALL QUADS, FLAT AND SOFT ABD, AND TNDERNESS ON EPIGASTRIC REGION. PT SATTES SHES BEEN HAVING N,V,D FOR 3 DAYS AND SAYS THE MEDICATION PRESCRIBED HASNT BEEN WORKING. VSS. NO DISTRESS NOTED. NKA. PMH: LEFT OVARY MALIGNANT NEOPLASM.
[2019-03-22] MEDS ORDERED: NACL 0.9% 500 ML IV ONE (09:41)
[2019-03-22] MEDS ORDERED: ONDANSETRON 4 MG/2 ML VIAL IVP ONE (09:45)
[2019-03-22] MEDS ORDERED: MORPHINE SULFATE 2 MG/ML SYR IVP ONE ×2 (09:45→12:15)
--- NOTE | 2019-03-22 10:12 | NUR ---
US AT BEDSIDE.
[2019-03-22 10:14] LABS: BASOPHILS % (AUTO) 0.3 % (0.0-2.0); EOSINOPHILS % (AUTO) 0.1 % (0.0-4.0); HEMOGLOBIN 13.7 g/dL (12.0-16.0); LYMPHOCYTES # (AUTO) 0.4 K/uL (2.5-16.5); LYMPHOCYTES % (AUTO) 12.3 % (20.5-51.1); MEAN CORPUSCULAR HEMOGLOBIN 32 pg (27-31); MEAN CORPUSCULAR HGB CONC 33 g/dL (33-37); MEAN CORPUSCULAR VOLUME 94.7 fL (80-94); MONOCYTES % (AUTO) 1.5 % (1.7-9.3); NEUTROPHILS # (AUTO) 2.6 K/uL (1.8-7.7); NEUTROPHILS % (AUTO) 85.8 % (42.2-75.2); PLATELET COUNT (AUTO) 234 K/uL (140-450); RED BLOOD CELL COUNT(AUTO) 4.33 MIL/uL (4.20-5.40); RED CELL DISTRIBUTION WIDTH 13.4 % (11.6-13.7)
[2019-03-22] MEDS ORDERED: PANTOPRAZOLE 40 MG INJ VIAL IVP ONE (10:40)
[2019-03-22 10:52] LABS: ALBUMIN 3.5 g/dL (3.4-5.0); ANION GAP 16.3 (8-16); CARBON DIOXIDE 25.6 mmol/L (21-32); CREATININE 0.6 mg/dL (0.6-1.3); POTASSIUM 3.9 mmol/L (3.5-5.1); TOTAL BILIRUBIN 0.5 mg/dL (0.0-1.0)
[2019-03-22 12:37] VITALS: BP 124/82
--- NOTE | 2019-03-22 12:38 | NUR ---
Patient discharged with v/s stable. Written and verbal after care instructions given and explained. Patient alert, oriented and verbalized understanding of instructions. Ambulatory with steady gait. All questions addressed prior to discharge. ID band removed. Patient advised to follow up with PMD. Rx of MORPHINE, ZOFRAN, AND PROTONIX given. Patient educated on indication of medication including possible reaction and side effects. Opportunity to ask questions provided and answered.
== END 2019-03-22 12:38 | disposition home or self-care (01) ==
LOC: MED 09:10
DX: K29.70 Gastritis, unspecified, without bleeding (principal); R11.2 Nausea with vomiting, unspecified; Z90.49 Acquired absence of other specified parts of digestive tract; Z98.890 Other specified postprocedural states; Z85.43 Personal history of malignant neoplasm of ovary; Z79.899 Other long term (current) drug therapy
CPT/HCPCS: 36415; 76705; 80053; 81002; 81025; 83690; 85025; 96361; 96374; 96375; 99284; C9113; J2405; J7030; Q0092; J2270